=== PATIENT | male | born 1970 | race African-American/Black ===

== ENCOUNTER 2019-12-12 11:58 | Emergency (ER) | payer MEDICAID ==
[~2019-12-12] VITALS: Ht 185.4 cm; Wt 68.0 kg
[2019-12-12 12:02] VITALS: BP_SYST 142
--- NOTE | 2019-12-12 12:09 | NUR ---
Patient to ER bed 4 to gown for evaluation. Side rails up. Report given to Suzy MARTINEZ.
--- NOTE | 2019-12-12 12:10 | NUR ---
Pt brought by self, A&Ox4, pt presents to ER with L foot pain/ swelling after twisting his foot, skin pink and warm, cap refill <3.
--- NOTE | 2019-12-12 12:27 | NUR ---
Dr Allen evaluating patient at bedside
--- NOTE | 2019-12-12 13:58 | NUR ---
khurram wrap applied to left ankle. Crutch use explained and understood with return demonstration.
[2019-12-12 13:59] VITALS: BP_SYST 142
--- NOTE | 2019-12-12 14:00 | NUR ---
Patient given written and verbal discharge instructions and verbalizes understanding. ER MD discussed with patient the results and treatment provided. Patient in stable condition. ID arm band removed. Rx of tramadol and naprosyn given. Patient educated on pain management and to follow up with PMD. Pain Scale 2/10. Opportunity for questions provided and answered. Medication side effect fact sheet provided.
== END 2019-12-12 14:00 | disposition home or self-care (01) ==
LOC: SED 11:58
DX: S93.692A Other sprain of left foot, initial encounter (principal); X50.1XXA Overexertion from prolonged static or awkward postures, initial encounter; Y93.89 Activity, other specified; Y92.89 Other specified places as the place of occurrence of the external cause; Y99.8 Other external cause status
CPT/HCPCS: 99283